=== PATIENT | male | born 1935 | race Caucasian/White ===

== ENCOUNTER → 2016-05-09 | Outpatient (CLI) | payer OTHER ==
[~2016-05-09] MED LIST: IOPAMIDOL (ISOVUE-300) 50 ML VIAL IV ONE
[2016-05-09 08:49] LABS: CREATININE 0.9 mg/dL (0.7-1.3); GLOMERULAR FILTRATION RATE > 60
--- NOTE | 2016-05-09 10:59 | CT ---
CT Scan of the Abdomen and Pelvis (With Contrast) May 09, 2016 Indication: Scrotal varices. Evaluate for retroperitoneal mass. Technique: Dilute contrast was given orally prior to scanning. 90 mL of Isovue-300 were given intra venously by machine power injection. Multidetector helical CT imaging was performed from the diaphra gm to the symphysis pubis. Dose reduction techniques were utilized. Comparison: Testicular ultrasound, April 19, 2016. Findings: No retroperitoneal mass or inflammatory process. The gonadal veins, draining to the left re nal vein and inferior vena cava, are normal in caliber. No enlarged lymph node, free fluid, or organi zed fluid collection. The liver, spleen, pancreas, gallbladder, adrenal glands, and kidneys are normal. Several benign well -circumscribed fluid-attenuation cysts are scattered throughout the liver. The portal venous system i s patent. No biliary dilation. A benign 2.5 cm cyst emanates off the right kidney. No nephrolithiasis or hydroureteronephrosis. The urinary bladder has minimal wall thickening without discrete mass. The lung bases are clear, except for bibasilar linear scarring. No pleural effusion. Heart size is no rmal. The abdominal aorta is normal caliber with mild calcified plaque. No bone lesions. Laminectomie s have been performed bilaterally at T12, L1, L2, L3, and L5. Severe degenerative disk disease is pre sent at L1-L2 and L5-S1. Bowel pattern is normal with the exception of sigmoid diverticulosis and mild constipation. Impression: 1. No retroperitoneal mass or structural explanation for bilateral varicoceles. 2. Sigmoid diverticulosis.
== END ==
LOC: FIMAGING 07:51
PROVIDERS: ATTEND Family Medicine
DX: I86.1 Scrotal varices (principal); K57.30 Diverticulosis of large intestine without perforation or abscess without bleeding
CPT/HCPCS: 74177; Q9967